=== PATIENT | male | born 1980 | race Caucasian/White ===

== ENCOUNTER 2020-11-24 16:08 | Emergency (ER) | payer BC ==
--- NOTE | 2020-11-24 16:11 | ERPHSYRPT ---
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 He suffered a laceration to his left thumb. His tetanus status is not up-to-date. He could move the finger fine and he has sensation. Occurred: just prior to arrival Method of Injury: other (Vegetable slicer) Quality: sharpness Severity of Pain-Max: moderate Severity of Pain-Current: moderate Extremities Pain Location: thumb: left Modifying Factors: Improves With: nothing Associated Symptoms: none Allergies/Adverse Reactions: No Known Drug Allergies Allergy (Verified 11/24/20 16:28) Home Medications: Tadalafil [Cialis] 10 mg PO UD 11/24/20 [History] Varenicline Tartrate [Chantix] 0.5 mg PO DAILY 11/24/20 [History] Hx Tetanus, Diphtheria Vaccination/Date Given: Yes Hx Influenza Vaccination/Date Given: No Hx Pneumococcal Vaccination/Date Given: No Travel Risk - International Travel Have you traveled outside of the country in past 3 weeks: No - Coronavirus Screening Are you exhibiting any of the following symptoms?: No Close contact with a COVID-19 positive Pt in past 14-21 Days: No - Review of Systems Constitutional: No Symptoms Eyes: No Symptoms Ears, Nose, & Throat: No Symptoms Respiratory: No Symptoms Cardiac: No Symptoms Abdominal/Gastrointestinal: No Symptoms Genitourinary Symptoms: No Symptoms Musculoskeletal: No Symptoms Skin: Other Neurological: No Symptoms (Laceration left thumb) Psychological: No Symptoms Endocrine: No Symptoms Hematologic/Lymphatic: No Symptoms Immunological/Allergic: No Symptoms All Other Systems: Reviewed and Negative - Past Medical History Pertinent Past Medical History: No Neurological History: No Pertinent History ENT History: No Pertinent History Cardiac History: No Pertinent History Respiratory History: No Pertinent History Endocrine Medical History: No Pertinent History Musculoskeletal History: No Pertinent History GI Medical History: No Pertinent History History: No Pertinent History - Past Surgical History Past Surgical History: No Neuro Surgical History: No Pertinent History Cardiac: No Pertinent History Respiratory: No Pertinent History Gastrointestinal: No Pertinent History Genitourinary: No Pertinent History Musculoskeletal: No Pertinent History Male Surgical History: No Pertinent History - Social History Smoking Status: Current every day smoker Exposure to second hand smoke: Yes Drug Use: none Patient Lives Alone: No - Nursing Vital Signs Nursing Vital Signs: Initial Vital Signs Temperature 98.6 F 11/24/20 16:17 Blood Pressure 139/96 11/24/20 16:17 Pain Scale Pain Intensity 2 - Physical Exam General Appearance: no apparent distress, alert, anxiety Eyes, Ears, Nose, Throat Exam: normal ENT inspection, moist mucous membranes Neck Exam: normal inspection, non-tender, supple, full range of motion Cardiovascular/Respiratory Exam: chest non-tender, no respiratory distress Abdominal Exam: non-tender Back Exam: normal inspection, normal range of motion, No CVA tenderness, No vertebral tenderness Shoulder Exam: normal inspection, non-tender, no evidence of injury, normal ROM Elbow/Forearm Exam: normal inspection, non-tender, no evidence of injury, normal ROM Wrist Exam: normal inspection, non-tender, no evidence of injury, normal ROM Hand Exam: normal ROM, laceration (Dorsal aspect left thumb. Tendon function intact. Neurovascularly intact. Full range of motion.) Neuro/Tendon Exam: normal sensation, normal motor functions, normal tendon functions, responds to pain Mental Status Exam: alert, oriented x 3, cooperative Skin Exam: normal color, warm, dry, laceration (As above) SpO2 Interpretation: normal O2 Delivery: Room Air Procedures - Laceration/Wound Repair Left Dorsal Finger Wound Location: Left, hand (Thumb) Wound Length (cm): 8 Wound's Depth, Shape: superficial, flap Wound Explored: clean Irrigated: Yes Hibiclens Prep: Yes Anesthesia: topical, 1% Lidocaine Volume Anesthetic (ccs): 5 Wound Repaired With: sutures Suture Size/Type: 4-0, prolene Number of Sutures: 9 (Patient would not allow me to do the most proximal 10th suture) Progress: 11/24/20 17:04 The area, postoperatively, was cleaned and dried. Bacitracin ointment was applied. Nonstick gauze and pressure dressing was also applied. There were no complications the patient told the procedure well. - Course Nursing assessment & vital signs reviewed: Yes Ordered Tests: Active Orders 24 hr Category Date Time Status Wound Care STAT Care 11/24/20 16:56 Ordered Medication Summary Discontinued Medications Generic Name Dose Route Start Last Admin Trade Name Freq PRN Reason Stop Dose Admin Bacitracin Zinc Confirm 11/24/20 16:45 Baciguent Packet Administered 11/24/20 16:46 Dose 1 gm .ROUTE .STK-MED ONE Bacitracin Zinc 0.9 gm 11/24/20 16:57 Baciguent Packet TP 11/24/20 16:58 STAT ONE Diphtheria/Tetanus/Acell Pertussis 0.5 ml 11/24/20 16:56 Adacel Vial IM 11/24/20 16:57 .ONCE ONE Lidocaine HCl 5 ml 11/24/20 16:55 Xylocaine 1% Hcl 20 Ml Mdv IJ 11/24/20 16:56 STAT ONE - Progress Progress: improved, pain not gone completely Counseled pt/family regarding: diagnosis, need for follow-up - Departure Departure Disposition: Home Clinical Impression: Thumb laceration Condition: Stable Critical Care Time: No Referrals: ABDIEL ARNOLD MD [Primary Care Provider] - Instructions: Laceration Repair With Stitches (DC) Additional Instructions: Keep dressing in place for 36 hours. After 36 hours, remove the dressings and wash the area with soap and water and once a day hydrogen peroxide. After the dressings are removed reapply the antibiotic ointment once a day prior to placement of daily dressing. Suture removal in 8 to 10 days. Use add ibuprofen for pain control. Use plain Tylenol for additional pain control after 48 hours. Prescriptions: Hydrocodone/APAP 5-325 Tab^^^ [Munson 5-325 Tablet^^^] 1 tab PO Q8H PRN PRN #6 tablet MDD 3 PRN Reason: Pain
[2020-11-24 16:28] VITALS: BP 139/96
[2020-11-24] MEDS ORDERED: BACIGUENT PACKET ONE (16:45)
[2020-11-24] MEDS ORDERED: XYLOCAINE 1% HCL 20 ML MDV IJ ONE (16:55)
[2020-11-24] MEDS ORDERED: Adacel Vial IM ONE ×2 (16:56→17:02)
[2020-11-24] MEDS ORDERED: BACIGUENT PACKET TP ONE (16:57)
[2020-11-24] MEDS ORDERED: XYLOCAINE 1% HCL 20 ML MDV ONE (17:02)
== END 2020-11-24 17:16 | disposition home or self-care (01) ==
LOC: ED 16:08
DX: S61.012A Laceration without foreign body of left thumb without damage to nail, initial encounter (principal); W45.8XXA Other foreign body or object entering through skin, initial encounter; Z79.899 Other long term (current) drug therapy
CPT/HCPCS: 12004; 90471; 90715; 96372; 99284; A9270-GY